=== PATIENT | female | born 2000 | race Two or more races ===

== ENCOUNTER 2020-06-12 18:47 | Emergency (ER) | payer OTHER ==
[~2020-06-12] VITALS: Ht 162.6 cm; Wt 69.9 kg
--- NOTE | 2020-06-12 19:07 | NUR ---
cc of high temp, not feeling well, and sore throat, which started yesterday. pt is from [place], here visiting with friends this weekend. pt with hx of DM 1 and states she checked her ketones which are high.
[2020-06-12] MEDS ORDERED: CLINDAMYCIN PMX 300MG/50ML 50 ML IV ONE (19:27)
[2020-06-12] MEDS ORDERED: ACETAMINOPHEN 500 MG TABLET PO ONE (19:30)
[2020-06-12] MEDS ORDERED: DEXAMETHASONE 4 MG/ML, 1ML IVPush ONE (19:30)
[2020-06-12] MEDS ORDERED: SODIUM CHLORIDE FLUSH 10ML SYR IVF ONE (19:30)
[2020-06-12] MEDS ORDERED: MORPHINE SULFATE 4 MG/ML, 1ML IVPush PRN (19:30)
[2020-06-12] MEDS ORDERED: ACETAMINOPHEN 500 MG TABLET ONE (19:39)
[2020-06-12] MEDS ORDERED: DEXAMETHASONE 4 MG/ML, 5ML ONE (19:39)
[2020-06-12] MEDS ORDERED: MORPHINE SULFATE 4 MG/ML, 1ML ONE (19:39)
[2020-06-12 19:52] LABS: BASOPHILS % (AUTO) 0 % (0-1); EOSINOPHILS % (AUTO) 0 % (1-7); LYMPHOCYTES % (AUTO) 5 % (22-44); MEAN CORPUSCULAR HEMOGLOBIN 29.5 pg (27.0-34.8); MEAN CORPUSCULAR HGB CONC 33.8 g/dL (32.4-35.8); MONOCYTES % (AUTO) 9 % (2-9); NEUTROPHILS % (AUTO) 86 % (42-75); PLATELET COUNT 223 x10^3/uL (130-400); RED BLOOD COUNT 4.25 x10^6/uL (3.82-5.3); RED CELL DISTRIBUTION WIDTH 12.4 % (9.6-15.2)
[2020-06-12] MEDS ORDERED: SODIUM CHLORIDE 0.9% 1,000ML IVBOLUS ONE (20:00)
[2020-06-12 20:04] LABS: ALANINE AMINOTRANSFERASE 38 U/L (12-78); ALBUMIN 3.6 g/dL (3.4-5.0); ANION GAP 9 mmol/L (5-15); CALCIUM 8.6 mg/dL (8.5-10.1); CHLORIDE 102 mmol/L (98-107); CREATININE 0.94 mg/dL (0.55-1.02)
[2020-06-12 20:07] LABS: ALKALINE PHOSPHATASE 106 U/L (45-117); BILIRUBIN,TOTAL 0.8 mg/dL (0.2-1.0); TOTAL PROTEIN 8.5 g/dL (6.4-8.2)
[2020-06-12 20:12] LABS: MD SCAN
[2020-06-12 21:50] VITALS: BP 113/70
--- NOTE | 2020-06-12 22:10 | NUR ---
PT VERBALIZED UNDERSTANDING OF DISCHARGE INSTRUCTIONS. PIV REMOVED. VSS. PT GETTING DRESSED.
[2020-06-12 22:18] LABS: ACETONE, SERUM Moderate(40mg/dL) (Negative)
== END 2020-06-12 22:23 | disposition home or self-care (01) ==
LOC: ED 20:52
DX: J02.0 Streptococcal pharyngitis (principal); D72.829 Elevated white blood cell count, unspecified; E10.65 Type 1 diabetes mellitus with hyperglycemia; J45.909 Unspecified asthma, uncomplicated; R94.31 Abnormal electrocardiogram [ECG] [EKG]; Z88.0 Allergy status to penicillin
CPT/HCPCS: 80053; 82010; 82962; 83605; 85025; 87040; 93005; 96365; 96375; 99284; J1100; J2270; J7030